=== PATIENT | female | born 1995 | race African-American/Black ===

== ENCOUNTER 2021-12-08 16:52 | Emergency (ER) | payer SELFPAY ==
[~2021-12-08] VITALS: Ht 165.1 cm; Wt 100.6 kg
[2021-12-08 16:52] VITALS: BP 136/84
--- NOTE | 2021-12-08 17:56 | PHYS DOC ---
Past Medical History Past Surgical History: Tonsillectomy General Adult EDM: Chief Complaint: TEST HPI: HPI: Patient is a 26 year old female who presents with wanting a OB ultrasound to see how far along she is . She states her last menstrual period was October 30. She states she has slight nausea but denies abdominal pain, vomiting, vaginal bleeding, vaginal discharge, concern for STD, urinary symptoms, back pain, headache or dizziness, fever. She states she currently does not have an OB doctor. She is G1, P0. Review of Systems: Review of Systems: Constitutional: Denies fever or chills. [] Eyes: Denies change in visual acuity. [] HENT: Denies nasal congestion or sore throat. [] Respiratory: Denies cough or shortness of breath. [] Cardiovascular: Denies chest pain or edema. [] GI: Denies abdominal pain, +nausea, denies vomiting, bloody stools or diarrhea. [] : Denies dysuria. [] Musculoskeletal: Denies back pain or joint pain. [] Integument: Denies rash. [] Neurologic: Denies headache, focal weakness or sensory changes. [] Endocrine: Denies polyuria or polydipsia. [] Lymphatic: Denies swollen glands. [] Psychiatric: Denies depression or anxiety. [] Heart Score: C/O Chest Pain: No Allergies: Allergies: Allergies Coded Allergies Type Severity Reaction Last Updated Verified No Known Drug Allergies 12/08/21 No Physical Exam: PE: Constitutional: Well developed, well nourished, no acute distress, non-toxic appearance. [] HENT: Normocephalic, atraumatic, bilateral external ears normal, oropharynx moist, no oral exudates, nose normal. [] Eyes: PERRLA, EOMI, conjunctiva normal, no discharge. [] Neck: Normal range of motion, no tenderness, supple, no stridor. [] Cardiovascular:Heart rate regular rhythm, no murmur [] Lungs & Thorax: Bilateral breath sounds clear to auscultation [] Abdomen: Bowel sounds normal, soft, no tenderness, no masses, no pulsatile masses. [] Skin: Warm, dry, no erythema, no rash. [] Back: No tenderness, no CVA tenderness. [] Extremities: No tenderness, no cyanosis, no clubbing, ROM intact, no edema. [] Neurologic: Alert and oriented X 3, normal motor function, normal sensory function, no focal deficits noted. [] Psychologic: Affect normal, judgement normal, mood normal. [] Normal physical exam Current Patient Data: Labs: Laboratory Tests Test 12/08/21 17:44 POC Urine HCG, Qualitative Hcg positive (Negative) Vital Signs: Vital Signs Date Time Temp Pulse Resp B/P (MAP) Pulse Ox O2 Delivery O2 Flow Rate FiO2 12/08/21 16:52 98.2 98 17 136/84 (101) 97 Room Air 98.2 EKG: EKG: [] Radiology/Procedures: Radiology/Procedures: [] Course & Med Decision Making: Course & Med Decision Making Pertinent Labs and Imaging studies reviewed. (See chart for details) See HPI. Alert and oriented x4. Ambulatory steady gait. Speaks in full clear sentences. Vital signs are within normal limits. Abdomen is soft and nontender. Patient's test is positive. Patient is given resources for follow-up care. [] Dragon Disclaimer: Dragon Disclaimer: This electronic medical record was generated, in whole or in part, using a voice recognition dictation system. Departure Departure Impression: Primary Impression: test positive Disposition: HOME / SELF CARE / HOMELESS Condition: STABLE Referrals: DAVID LYNN MD Patient Instructions: ABCs of Additional Instructions: Call and get follow-up appointment within [facility] doctor soon as possible. Make sure you are taking vitamins with food daily. Drink plenty of fluids to stay hydrated. If you begin having vaginal bleeding or severe abdominal pain return emergency room. JESSY NORTON SHIRT SORTER Dec 08, 2021 17:56
== END 2021-12-08 18:04 | disposition home or self-care (01) ==
LOC: ER 16:52
DX: O26.891 Other specified pregnancy related conditions, first trimester (principal); R11.0 Nausea; Z3A.00 Weeks of gestation of pregnancy not specified
CPT/HCPCS: 81025; 99282

== ENCOUNTER → 2021-12-14 | Outpatient (CLI) | payer SELFPAY ==
[2021-12-08 16:52] VITALS: BP 136/84
--- NOTE | 2021-12-17 09:32 | RAD ---
US OB <14 WKS +TV History: Reason: UNSURE DATES / Spl. Instructions: / History: Comparison: None. Technique: Grayscale and color Doppler imaging of the pelvis was performed using transabdominal techn ique. Findings: The uterus measures 10 x 6 x 5 cm. Single intrauterine gestational sac with regular appearance. Yolk sac is identified. pole is id entified with crown-rump length 0.21 cm. Estimated gestational age by ultrasound 5 weeks 5 days. Feta l heart rate 115 bpm. Small perigestational hematoma measures approximately 1.3 x 0.5 cm. Estimated date of delivery by ultrasound at August 11, 2022. Right ovary measures 4.1 x 2.5 x 2.9 cm. Dominant complicated right ovarian follicle measures 2.0 cm. Left ovary measures 3.3 x 1.6 x 1.7 cm. Normal Doppler flow to the ovaries bilaterally. No adnexal masses are seen. IMPRESSION: 1. Single intrauterine with gestational age 5 weeks 5 days and heart rate 115 bpm. R ecommend routine anatomic screening at 18-22 weeks. 2. Small perigestational hematoma. Electronically signed by: Simone Rodriguez DO (12/17/2021 9:29 AM) [id number]
== END ==
LOC: US 15:52
PROVIDERS: ATTEND Obstetrics & Gynecology
DX: O20.8 Other hemorrhage in early pregnancy (principal); Z3A.01 Less than 8 weeks gestation of pregnancy
CPT/HCPCS: 76801; 76817